=== PATIENT | male | born 1980 | race Caucasian/White ===

== ENCOUNTER → 2022-04-14 11:41 | Outpatient (BNVA) | payer MEDICARE, MEDICAID, SELFPAY | PROVIDERS: PCP Internal Medicine; Visit Provider Student in an Organized Health Care Education/Training Program | DX: M1A.09X1 Idiopathic chronic gout, multiple sites, with tophus (tophi) (principal) | CPT/HCPCS: 99202 ==

== ENCOUNTER → 2022-06-30 11:47 | Outpatient (BNVA) | payer MEDICARE, MEDICAID, SELFPAY | PROVIDERS: PCP Internal Medicine; Visit Provider Student in an Organized Health Care Education/Training Program | DX: M1A.09X1 Idiopathic chronic gout, multiple sites, with tophus (tophi) (principal) | CPT/HCPCS: 99212 ==

== ENCOUNTER 2022-10-01 08:51 | Outpatient (REF) | payer MEDICARE, MEDICAID, SELFPAY ==
[2022-10-01 10:58] LABS: MANUAL DIFF FLAG NO
[2022-10-01 11:03] LABS: Basophils Absolute Auto 0.1 X10*3/uL (0.0-0.2); Basophils Percent Auto 1.5 % (0-2); Eosinophils Absolute Auto 0.3 X10*3/uL (0.0-0.4); Eosinophils Percent Auto 4.6 % (0-4); Hematocrit 40.7 % (42.0-52.0); Hemoglobin 13.8 g/dl (14.0-18.0); Imm Gran Abs Auto 0.04 X10*3/uL (0.00-0.03); Imm Gran Pct Auto 0.6 % (0.0-0.4); Lymphocytes Absolute Auto 1.6 X10*3/uL (1.2-4.9); Lymphocytes Percent Auto 23.8 % (20-40); Mean Corpuscular HGB Conc 33.9 g/dl (31.0-36.0); Mean Corpuscular Hemoglobin 29.9 pg (27.0-33.0); Mean Corpuscular Volume 88.1 fL (80.0-98.0); Mean Platelet Volume 10.9 fL (9.4-12.4); Monocytes Absolute Auto 0.8 X10*3/uL (0.1-1.2); Monocytes Percent Auto 11.7 % (2-11); Neutrophils Absolute Auto 3.9 x10*3/uL (2.0-8.3); Neutrophils Percent Auto 57.8 % (45-73); Platelet Count 282 X10*3/uL (160-400); Red Blood Count 4.62 X10*6/uL (4.60-5.80); Red Cell Distribution Width 14.6 % (11.0-16.0); White Blood Count 6.7 X10*3/uL (4.8-10.8)
[2022-10-01 11:14] LABS: Alanine Aminotransferase 36 U/L (0-40); Albumin Level 4.2 g/dL (3.5-5.0); Alkaline Phosphatase 53 U/L (39-117); Anion Gap 17 (12-20); Aspartate Amino Transferase 23 U/L (5-37); Bilirubin Total 1.1 mg/dL (0.0-1.0); Blood Urea Nitrogen 19 mg/dL (9-16); Calcium 9.7 mg/dL (8.4-10.2); Carbon Dioxide 23 mmol/L (22-29); Chloride 99 mmol/L (96-108); Estimated Glomerular Filt Rate > 60; Glucose Random 125 mg/dL (60-115); Potassium 3.4 mmol/L (3.3-5.1); Sodium 136 mmol/L (135-145); Total Protein 7.1 g/dL (6.5-8.0); Uric Acid 6.6 mg/dL (3.4-7.0)
== END 2022-10-01 08:52 | disposition home or self-care (01) ==
LOC: HO.10HDL 08:51
PROVIDERS: Visit Provider Student in an Organized Health Care Education/Training Program
DX: M1A.09X1 Idiopathic chronic gout, multiple sites, with tophus (tophi) (principal); I69.351 Hemiplegia and hemiparesis following cerebral infarction affecting right dominant side; Z79.899 Other long term (current) drug therapy; Z79.01 Long term (current) use of anticoagulants
CPT/HCPCS: 36415; 80053; 84550; 85025; 99212

== ENCOUNTER 2022-10-01 15:41 | Outpatient (AMB) | payer MEDICARE, MEDICAID, SELFPAY ==
[2022-10-01 15:47] VITALS: BP 140/88; PULSE 77; TEMP 36.2; O2SAT 95; BMI 37.7
--- NOTE | 2022-10-01 15:47 | MHC.OFFVIS ---
Intake Vital Signs 10/01/22 15:47 Height 6 ft 2 in Weight 293 lb 14.019 oz BMI 37.7 BP 140/88 H Blood Pressure Location Lt brachial Position Sitting Pulse 77 Pulse Source Pulse Oximeter Temp 97.2 F Temp Source Skin Pulse Oximetry (%) 95 Intake Visit Reasons: Gout Intake Note: Pt seen today for Gout follow up. States he has been off of prednsione for 5 days, no increased pain. He would like to know if the allopurinol dose can be adjusted. 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 Patient took 50 mg of prednisone daily then slowly tapered himself off. About a month ago. A couple of weeks ago he had a flare affecting his right ankle and took prednisone 50 mg for few days then stop. Today patient is feeling well with no joint pain or swelling. Continues to take allopurinol 300 mg daily Initial history: This is a 42-year-old male with complex past medical history including congenital heart disease is s/p multiple surgical interventions, AFib on warfarin, CVA with residual right-sided hemiparesis and gout presents for gout evaluation. Patient stated he was diagnosed with gout around 2011. Gout attacks have usually affected his right and left toes and ankles. He was started on allopurinol and was stable on allopurinol 300 mg daily for many years without gout flare until 4 months ago when he had recurrent gout flares. He stopped the allopurinol then. Over the last 3-4 months he has had multiple flares affecting his feet and ankles mostly affecting his right foot. No other joint involvement. Denies history of kidney stones. He denies any family history of gout. Patient was taking colchicine but this was discontinued by his PCP due to numerous drug interactions. Gout flares were treated with prednisone tapers. His most recent gout flare started 5 days ago affecting his right ankle he took 2 colchicine tablets which provided some relief but he continues to have pain in his right ankle. [facility] Medical History A-fib Adjustment disorder with emotional disturbance Anxiety and depression Cannabis dependence CHF (congestive heart failure) CVA (cerebral vascular accident) Diarrhea Ebstein anomaly Epistaxis Gout Hypokalemia Obesity Recurrent major depression Restrictive airway disease Sleep apnea Varicose veins of both lower extremities Venous hypertension Surgical History H/O aortic valve replacement Family History Mother Alcoholism Skin cancer Heart disease Rheumatoid arthritis Paternal Grandfather CVA (cerebral vascular accident) Other Family history of rheumatoid arthritis Social History Alcohol intake: current Alcohol intake frequency: holidays/special occasions only Patient Tobacco Use Status: Former Tobacco user Current occupational status: employed 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[facility] [place]ralgias and Denies joint swelling Physical Exam Vital Signs: Last Vital Signs Temp 97.2 F 10/01/22 15:47 Pulse 77 10/01/22 15:47 BP 140/88 H 10/01/22 15:47 Pulse Ox 95 10/01/22 15:47 BMI result Body Mass Index 37.7 Const General: cooperative, healthy appearing and comfortable Nutritional Appearance: obese Orientation/consciousness: patient oriented x3 Limitations: no limitations HEENT Head: Yes normocephalic and Yes atraumatic Resp Effort & Inspection: normal respiratory effort and able to speak in complete sentences Skin General skin exam: no rashes or lesions noted Neuro Other: Right upper extremity hemiparesis?with some spasticity General: patient oriented x3 Extrem Other: no active synovitis today 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 Stopped Allopurinol sometime in 2021 with resultant recurrent gout attacks. Allopurinol 300 mg restarted 04/29, advanced to 400 mg 09/26 Colchicine stopped by PCP due to numerous drug interactions Code(s): M10.9 - Gout, unspecified Qualifiers: Gout site: multiple sites Gout etiology: idiopathic Chronicity: chronic Presence of tophus: with tophus Qualified Code(s): M1A.09X1 - Idiopathic chronic gout, multiple sites, with tophus (tophi) Plan: This is a 42-year-old male with complex past medical history include congenital heart defects s/p multiple surgeries, AFib on warfarin presents for gout follow-up Most recent uric acid level today 6.4 mg/dL not in a flare Today's doing well. His gout is well controlled off of prednisone. Uric acid level is still not at target. Will increase allopurinol to 400 mg daily. Repeat uric acid level before next visit in 4 months Orders: Orders Comprehensive Met. Panel 4 Months M10.9 - Gout, unspecified Uric Acid 4 Months M10.9 - Gout, unspecified Medications: New allopurinol Take 1 tab daily with allopurinol 300 mg daily for a total of 400 mg daily 100 mg PO DAILY 90 tabs 1RF Refilled allopurinol 300 mg PO DAILY 90 tabs 1RF allopurinol 300 mg PO DAILY 90 tabs 1RF Coding Level of Care Code Est Pt Level 3 (28832) Diagnoses Gout M1A.09X1 Gout site: multiple sites Gout etiology: idiopathic Chronicity: chronic Presence of tophus: with tophus
== END 2022-10-01 16:15 | disposition home or self-care (01) ==
PROVIDERS: PCP Internal Medicine; Visit Provider Student in an Organized Health Care Education/Training Program
DX: M1A.09X1 Idiopathic chronic gout, multiple sites, with tophus (tophi) (principal)
CPT/HCPCS: 99213